=== PATIENT | female | born 1990 | race Caucasian/White ===

== ENCOUNTER 2016-10-31 23:12 | Emergency (ER) | payer OTHER ==
[2016-10-31] MEDS ORDERED: AZITHROMYCIN 250 MG TAB As Ordered ONE (23:44)
[2016-10-31] MEDS ORDERED: PSEUDOEPHEDRINE 30 MG TAB PO ONE (23:45)
--- NOTE | 2016-11-01 00:25 | EDDOCDS ---
Physician Documentation [facility] Name: Gala Shepard Age: 26 yrs Sex: Female : 1990 Arrival Date: 10/31/2016 Time: 23:12 Bed I9 / 22 Private MD: Adis Disposition: 10/31/16 23:34 Discharged to Home/Self Care. Impression: Acute bronchitis. - Condition is Stable. - Discharge Instructions: Acute Bronchitis. - Prescriptions for Claritin- D 12 Hour 5-120 mg Oral Tablet Sustained Release 12 hr - take 1 tablet by ORAL route every 12 hours As needed; 30 tablet. Zithromax Z- Emre 250 mg Oral Tablet - take 1 tablet by ORAL route as directed for 5 days Day 1- take two tablets once. Day 2, 3, 4 , 5 take one tablet once daily.; 6 tablet. - Medication Reconciliation, Local Pharmacy Hours form. - Follow up: Adis; When: 4 - 5 days; Reason: Recheck today's complaints, Continuance of care. - Problem is an ongoing problem. - Symptoms are unchanged. - Notes: use inhaler Historical: - Allergies: No known drug Allergies; - Home Meds: 1. murina control 2. Albuterol Inhl 2 puffs as needed as needed 3. Mica-[place] Plus Mucus-Conges 10-200 mg oral cap as needed - PMHx: Asthma; - PSHx: Breast Augmentation; - Social history: Smoking status: Patient uses tobacco products, heavy tobacco smoker. No barriers to communication noted, The patient speaks fluent Iranian, Speaks appropriately for age. - Family history: Not pertinent. - : The pt / caregiver states he / she is not on anticoagulants. Home medication list is obtained from the patient. - Exposure Risk Screening:: None identified. 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 2 in. (157.48 cm) (R); Pain 4/10; 11/01 00:16 BP 116 / 71; Pulse 109 MON; Resp 18 S; Temp 98.6(TE); Pulse Ox 98% on R/A; Pain 0/10; ka4 10/31 23:14 Body Mass Index 22.86 (56.70 kg, 157.48 cm) gr2 MDM: 10/31 23:29 azithromycin 500 mg PO once ordered. ke 23:29 Sudafed 30 mg PO once ordered. 23:49 Financial registration complete. natasha Administered Medications: 11/01 00:16 Drug: azithromycin 500 mg [azithromycin 250 mg tablet (2 tabs)] Route: PO; ka4 00:24 Follow up: Response: Pt left department before re-evaluation is appropriate ka4 00:16 Drug: Sudafed 30 mg Route: PO; ka4 00:24 Follow up: Response: Pt left department before re-evaluation is appropriate 4 Signatures: Arnel Gordon, METAL MIXER Félix Whitten RN RN Gris Nation,FINE JEWELRY SALES ASSOCIATE HAYDEN Paige Contreras FABIO
--- NOTE | 2016-11-01 00:25 | EDDOCDS ---
Nurse's Notes [facility] Name: Gala Shepard Age: 26 yrs Sex: Female : 1990 Arrival Date: 10/31/2016 Time: 23:12 Bed I9 / 22 Private MD: Adis Diagnosis: Acute bronchitis Presentation: 10/31 23:20 Presenting complaint: Patient states: Patient reports congestion and chest pain from b coughing. Patient reports symptoms have been present since Friday. Patient reports taking alkaseltzer sinus. Adult Sepsis Screening: The patient does not have new or worsening altered mentation. Patient's respiratory rate is less than 22. Systolic blood pressure is greater than 100. Patient has a qSOFA score of 0- Negative Sepsis Screen. Suicide/Homicide risk assessment- the patient denies having any suicidal and/or homicidal ideations and does not present with any other emotional, behavioral or mental health complaints. 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 Transition of care: patient was not received from another setting of care. 23:20 Acuity: PARRISH Level 4 [facility] 23:20 Method Of Arrival: Walkin/Carried/Asstd [facility] Triage Assessment: 23:22 General: Appears in no apparent distress, comfortable, Behavior is appropriate for age, jmb cooperative. Pain: Denies pain. HIV screening NA for this visit Offered previously. Neurological: Level of Consciousness is awake, alert, obeys commands, Oriented to person, place, time, Speech is normal, Facial symmetry appears normal, Facial symmetry: tongue is midline. Respiratory: Onset: The symptoms/episode began/occurred gradually, Airway is patent Respiratory effort is even, unlabored, Respiratory pattern is regular, symmetrical. GI: Abdomen is non- distended. Derm: Skin is pink, warm & dry. Musculoskeletal: Range of motion intact in all extremities. 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 murina control 2. Albuterol Inhl 2 puffs as needed as needed 3. Mica-[place] Plus Mucus-Conges 10-200 mg oral cap as needed - PMHx: Asthma; - PSHx: Breast Augmentation; - Social history: Smoking status: Patient uses tobacco products, heavy tobacco smoker. No barriers to communication noted, The patient speaks fluent Zambian, Speaks appropriately for age. - Family history: Not pertinent. - : The pt / caregiver states he / she is not on anticoagulants. Home medication list is obtained from the patient. - Exposure Risk Screening:: None identified. Screenin/06 00:22 Screening information is obtained from the patient. Fall risk: No risks identified. ka4 Assistance ADL's: requires no assistance with activities of daily living. Abuse/DV Screen: The patient / caregiver reports he/she is: not in a situation that causes fear, pain or injury. Nutritional screening: No deficits noted. Advance Directives: There is no active DNR order. home support is adequate. Assessment: 00:22 General: Appears in no apparent distress, comfortable, well nourished, well groomed, ka4 Behavior is appropriate for age, cooperative, pleasant. Pain: Denies pain. Neurological: Level of Consciousness is awake, alert, obeys commands, Oriented to person, place, time, Meatcutter are equal bilaterally Moves all extremities. Gait is steady, Speech is normal, Facial symmetry appears normal, Facial symmetry: tongue is midline. Respiratory: Airway is patent Respiratory effort is even, unlabored, Respiratory pattern is regular, symmetrical. GI: Abdomen is flat. Derm: Skin is intact, is healthy with good turgor, Skin is pink, warm & dry. Vital Signs: 10/31 23:14 BP 99 / 73; Pulse 117; Resp 18 S; Temp 97.0(O); Pulse Ox 97% on R/A; Weight 56.7 kg gr2 (R); Height 5 ft. 2 in. (157.48 cm) (R); Pain 4/10; 11/01 00:16 BP 116 / 71; Pulse 109 MON; Resp 18 S; Temp 98.6(TE); Pulse Ox 98% on R/A; Pain 0/10; ka4 10/31 23:14 Body Mass Index 22.86 (56.70 kg, 157.48 cm) gr2 Vitals: 10/31 23:14 Log In Time: October 31, 2016 at 23:14. gr2 ED Course: 23:13 Patient visited by Filippo Higgins. gr2 23:13 Adis is Private Physician. gr2 23:13 Patient moved to Waiting gr2 23:15 Patient visited by Filippo Higgins. gr2 23:15 Patient moved to Pre RCE gr2 23:21 Triage Initiated b 23:24 Patient moved to [facility] 23:25 [facility]nel [facility] F[facility] ke 23:25 Patient visited by Arnel Gordon FNP. ke 23:25 Patient visited by Arnel Gordon FNP. ke 23:34 Adis is Referral Physician. 11/01 00:22 The patient / caregiver is instructed regarding the plan of care and ED course. ka4 00:22 No IV's were initiated during this patient's visit. No procedures done that require ka4 assistance. Administered Medications: 00:16 Drug: azithromycin 500 mg [azithromycin 250 mg tablet (2 tabs)] Route: PO; ka4 00:24 Follow up: Response: Pt left department before re-evaluation is appropriate ka4 00:16 Drug: Sudafed 30 mg Route: PO; ka4 00:24 Follow up: Response: Pt left department before re-evaluation is appropriate ka4 Order Results: There are currently no results for this order. Outcome: 10/31 23:34 Discharge ordered by Provider. 11/01 00:22 Discharge Assessment: Patient awake, alert and oriented x 3. No cognitive and/or ka4 functional deficits noted. Patient verbalized understanding of disposition instructions. patient administered narcotics - no. The following High Risk Discharge criteria are identified: None. Discharged to home ambulatory. Condition: good Condition: stable. Discharge instructions given to patient, Instructed on discharge instructions, follow up and referral plans. medication usage, Demonstrated understanding of instructions, medications, Pt was receptive of discharge instructions/ teaching. Prescriptions given X 2. No special radiology studies were completed. Property :Personal belongings accompany Pt. 00:24 Patient left the ED. ka4 Signatures: Arnel Gordon FNP FNP Filippo Higgins gr2 Félix Glez RN RN Gris Nation LPN LPN ka4 MTDD
--- NOTE | 2016-11-03 01:25 | EDDOCDS ---
Physician Documentation [facility] Name: Gala Shepard Age: 26 yrs Sex: Female : 1990 Arrival Date: 10/31/2016 Time: 23:12 Bed I9 / 22 Private MD: Adis Disposition: 10/31/16 23:34 Discharged to Home/Self Care. Impression: Acute bronchitis. - Condition is Stable. - Discharge Instructions: Acute Bronchitis. - Prescriptions for Claritin- D 12 Hour 5-120 mg Oral Tablet Sustained Release 12 hr - take 1 tablet by ORAL route every 12 hours As needed; 30 tablet. Zithromax Z- Emre 250 mg Oral Tablet - take 1 tablet by ORAL route as directed for 5 days Day 1- take two tablets once. Day 2, 3, 4 , 5 take one tablet once daily.; 6 tablet. - Medication Reconciliation, Local Pharmacy Hours form. - Follow up: Adis; When: 4 - 5 days; Reason: Recheck today's complaints, Continuance of care. - Problem is an ongoing problem. - Symptoms are unchanged. - Notes: use inhaler Historical: - Allergies: No known drug Allergies; - Home Meds: 1. murina control 2. Albuterol Inhl 2 puffs as needed as needed 3. Mica-[place] Plus Mucus-Conges 10-200 mg oral cap as needed - PMHx: Asthma; - PSHx: Breast Augmentation; - Social history: Smoking status: Patient uses tobacco products, heavy tobacco smoker. No barriers to communication noted, The patient speaks fluent Tajik, Speaks appropriately for age. - Family history: Not pertinent. - : The pt / caregiver states he / she is not on anticoagulants. Home medication list is obtained from the patient. - Exposure Risk Screening:: None identified. 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 2 in. (157.48 cm) (R); Pain 4/10; 11/01 00:16 BP 116 / 71; Pulse 109 MON; Resp 18 S; Temp 98.6(TE); Pulse Ox 98% on R/A; Pain 0/10; ka4 10/31 23:14 Body Mass Index 22.86 (56.70 kg, 157.48 cm) gr2 MDM: 10/31 23:29 azithromycin 500 mg PO once ordered. ke 23:29 Sudafed 30 mg PO once ordered. ke 23:49 Financial registration complete. gjb 11/01 05:18 ON LICENSE OF [facility] Payment Agreement was scanned into [employer] and attached to record. gjb 08:09 T-Sheet-- Draft Copy was scanned into [employer] and attached to record. gb Administered Medications: 00:16 Drug: azithromycin 500 mg [azithromycin 250 mg tablet (2 tabs)] Route: PO; ka4 00:24 Follow up: Response: Pt left department before re-evaluation is appropriate ka4 00:16 Drug: Sudafed 30 mg Route: PO; ka4 00:24 Follow up: Response: Pt left department before re-evaluation is appropriate ka4 Signatures: Magalie Mullins, Reg Reg gb Arnel Gordon, DATA STEWARD DATA STEWARD Félix King,RN RN [place] Gris Sellers,COST AND RISK ANALYSIS MANAGER HAYDEN ka4 Paige Coffey [facility] The chart was reviewed and I authenticate all verbal orders and agree with the evaluation and treatment provided.Attachments: 05:18 ON LICENSE OF [facility] Payment Agreement gjb 08:09 T-Sheet-- Draft Copy gb Chart Complete MTDD
--- NOTE | 2016-11-03 01:25 | EDDOCDS ---
Physician Documentation [facility] Name: Gala Shepard Age: 26 yrs Sex: Female : 1990 Arrival Date: 10/31/2016 Time: 23:12 Bed I9 / 22 Private MD: Adis Disposition: 10/31/16 23:34 Discharged to Home/Self Care. Impression: Acute bronchitis. - Condition is Stable. - Discharge Instructions: Acute Bronchitis. - Prescriptions for Claritin- D 12 Hour 5-120 mg Oral Tablet Sustained Release 12 hr - take 1 tablet by ORAL route every 12 hours As needed; 30 tablet. Zithromax Z- Emre 250 mg Oral Tablet - take 1 tablet by ORAL route as directed for 5 days Day 1- take two tablets once. Day 2, 3, 4 , 5 take one tablet once daily.; 6 tablet. - Medication Reconciliation, Local Pharmacy Hours form. - Follow up: Adis; When: 4 - 5 days; Reason: Recheck today's complaints, Continuance of care. - Problem is an ongoing problem. - Symptoms are unchanged. - Notes: use inhaler Historical: - Allergies: No known drug Allergies; - Home Meds: 1. murina control 2. Albuterol Inhl 2 puffs as needed as needed 3. Mica-[place] Plus Mucus-Conges 10-200 mg oral cap as needed - PMHx: Asthma; - PSHx: Breast Augmentation; - Social history: Smoking status: Patient uses tobacco products, heavy tobacco smoker. No barriers to communication noted, The patient speaks fluent Greek, Speaks appropriately for age. - Family history: Not pertinent. - : The pt / caregiver states he / she is not on anticoagulants. Home medication list is obtained from the patient. - Exposure Risk Screening:: None identified. 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 2 in. (157.48 cm) (R); Pain 4/10; 11/01 00:16 BP 116 / 71; Pulse 109 MON; Resp 18 S; Temp 98.6(TE); Pulse Ox 98% on R/A; Pain 0/10; ka4 10/31 23:14 Body Mass Index 22.86 (56.70 kg, 157.48 cm) gr2 MDM: 10/31 23:29 azithromycin 500 mg PO once ordered. ke 23:29 Sudafed 30 mg PO once ordered. ke 23:49 Financial registration complete. gjb 11/01 05:18 [facility] Payment Agreement was scanned into [employer] and attached to record. gjb 08:09 T-Sheet-- Draft Copy was scanned into [employer] and attached to record. gb Administered Medications: 00:16 Drug: azithromycin 500 mg [azithromycin 250 mg tablet (2 tabs)] Route: PO; ka4 00:24 Follow up: Response: Pt left department before re-evaluation is appropriate ka4 00:16 Drug: Sudafed 30 mg Route: PO; ka4 00:24 Follow up: Response: Pt left department before re-evaluation is appropriate ka4 Signatures: Magalie Mullins, Reg Reg gb Arnel Gordon, SHOT GRINDER OPERATOR SHOT GRINDER OPERATOR Félix King,RN RN [place] Gris Sellers,VENTURE CAPITALIST HAYDEN ka4 Paige Coffe[address] [facility] The chart was reviewed and I authenticate all verbal orders and agree with the evaluation and treatment provided.Attachments: 05:18 [facility] Payment Agreement gjb 08:09 T-Sheet-- Draft Copy gb Chart Complete MTDD
--- NOTE | 2016-11-03 01:25 | EDDOCDS ---
Nurse's Notes [facility] Name: Gala Shepard Age: 26 yrs Sex: Female : 1990 Arrival Date: 10/31/2016 Time: 23:12 Bed I9 / 22 Private MD: Adis Diagnosis: Acute bronchitis Presentation: 10/31 23:20 Presenting complaint: Patient states: Patient reports congestion and chest pain from b coughing. Patient reports symptoms have been present since Friday. Patient reports taking alkaseltzer sinus. Adult Sepsis Screening: The patient does not have new or worsening altered mentation. Patient's respiratory rate is less than 22. Systolic blood pressure is greater than 100. Patient has a qSOFA score of 0- Negative Sepsis Screen. Suicide/Homicide risk assessment- the patient denies having any suicidal and/or homicidal ideations and does not present with any other emotional, behavioral or mental health complaints. 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 Transition of care: patient was not received from another setting of care. 23:20 Acuity: PARRISH Level 4 [facility] 23:20 Method Of Arrival: Walkin/Carried/Asstd [facility] Triage Assessment: 23:22 General: Appears in no apparent distress, comfortable, Behavior is appropriate for age, jmb cooperative. Pain: Denies pain. HIV screening NA for this visit Offered previously. Neurological: Level of Consciousness is awake, alert, obeys commands, Oriented to person, place, time, Speech is normal, Facial symmetry appears normal, Facial symmetry: tongue is midline. Respiratory: Onset: The symptoms/episode began/occurred gradually, Airway is patent Respiratory effort is even, unlabored, Respiratory pattern is regular, symmetrical. GI: Abdomen is non- distended. Derm: Skin is pink, warm & dry. Musculoskeletal: Range of motion intact in all extremities. 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 murina control 2. Albuterol Inhl 2 puffs as needed as needed 3. Mica-[place] Plus Mucus-Conges 10-200 mg oral cap as needed - PMHx: Asthma; - PSHx: Breast Augmentation; - Social history: Smoking status: Patient uses tobacco products, heavy tobacco smoker. No barriers to communication noted, The patient speaks fluent Palestinian, Speaks appropriately for age. - Family history: Not pertinent. - : The pt / caregiver states he / she is not on anticoagulants. Home medication list is obtained from the patient. - Exposure Risk Screening:: None identified. Screenin/06 00:22 Screening information is obtained from the patient. Fall risk: No risks identified. ka4 Assistance ADL's: requires no assistance with activities of daily living. Abuse/DV Screen: The patient / caregiver reports he/she is: not in a situation that causes fear, pain or injury. Nutritional screening: No deficits noted. Advance Directives: There is no active DNR order. home support is adequate. Assessment: 00:22 General: Appears in no apparent distress, comfortable, well nourished, well groomed, ka4 Behavior is appropriate for age, cooperative, pleasant. Pain: Denies pain. Neurological: Level of Consciousness is awake, alert, obeys commands, Oriented to person, place, time, Chemical Dependency Nurse are equal bilaterally Moves all extremities. Gait is steady, Speech is normal, Facial symmetry appears normal, Facial symmetry: tongue is midline. Respiratory: Airway is patent Respiratory effort is even, unlabored, Respiratory pattern is regular, symmetrical. GI: Abdomen is flat. Derm: Skin is intact, is healthy with good turgor, Skin is pink, warm & dry. Vital Signs: 10/31 23:14 BP 99 / 73; Pulse 117; Resp 18 S; Temp 97.0(O); Pulse Ox 97% on R/A; Weight 56.7 kg gr2 (R); Height 5 ft. 2 in. (157.48 cm) (R); Pain 4/10; 11/01 00:16 BP 116 / 71; Pulse 109 MON; Resp 18 S; Temp 98.6(TE); Pulse Ox 98% on R/A; Pain 0/10; ka4 10/31 23:14 Body Mass Index 22.86 (56.70 kg, 157.48 cm) gr2 Vitals: 10/31 23:14 Log In Time: October 31, 2016 at 23:14. gr2 ED Course: 23:13 Patient visited by Filippo Higgins. gr2 23:13 Adis is Private Physician. gr2 23:13 Patient moved to Waiting gr2 23:15 Patient visited by Filippo Higgins. gr2 23:15 Patient moved to Pre RCE gr2 23:21 Triage Initiated jmb 23:24 Patient moved to I jmb 23:25 [facility]nel Gordon FNP [facility] ke 23:25 Patient visited by Arnel Gordon FNP. ke 23:25 Patient visited by Arnel Gordon FNP. ke 23:34 Adis is Referral Physician. 11/01 00:22 The patient / caregiver is instructed regarding the plan of care and ED course. ka4 00:22 No IV's were initiated during this patient's visit. No procedures done that require ka4 assistance. 05:18 [facility] Payment Agreement was scanned into [email or web address] and attached to record. natasha 08:09 T-Sheet-- Draft Copy was scanned into [email or web address] and attached to record. gb Administered Medications: 00:16 Drug: azithromycin 500 mg [azithromycin 250 mg tablet (2 tabs)] Route: PO; ka4 00:24 Follow up: Response: Pt left department before re-evaluation is appropriate ka4 00:16 Drug: Sudafed 30 mg Route: PO; ka4 00:24 Follow up: Response: Pt left department before re-evaluation is appropriate ka4 Order Results: There are currently no results for this order. Outcome: 10/31 23:34 Discharge ordered by Provider. 11/01 00:22 Discharge Assessment: Patient awake, alert and oriented x 3. No cognitive and/or ka4 functional deficits noted. Patient verbalized understanding of disposition instructions. patient administered narcotics - no. The following High Risk Discharge criteria are identified: None. Discharged to home ambulatory. Condition: good Condition: stable. Discharge instructions given to patient, Instructed on discharge instructions, follow up and referral plans. medication usage, Demonstrated understanding of instructions, medications, Pt was receptive of discharge instructions/ teaching. Prescriptions given X 2. No special radiology studies were completed. Property :Personal belongings accompany Pt. 00:24 Patient left the ED. ka4 Signatures: Magalie Mullins, Reg Reg gb Arnel Gordon FNP FNP ke Raymond, [place] gr2 Félix Glez,RN RN Gris Nation,MECHANICAL ADJUSTER MECHANICAL ADJUSTER ka4 Paige Coffey Chart Complete MTDD
== END 2016-11-01 00:24 | disposition home or self-care (01) ==
LOC: M ED 23:12
DX: J20.9 Acute bronchitis, unspecified (principal); J45.909 Unspecified asthma, uncomplicated; Z98.82 Breast implant status; Z72.0 Tobacco use; Z79.3 Long term (current) use of hormonal contraceptives

== ENCOUNTER → 2018-08-30 | Outpatient (REF) | payer OTHER | LOC: M SFHCLERA 19:04 | DX: J02.9 Acute pharyngitis, unspecified (principal) ==